=== PATIENT | female | born 1990 | race Caucasian/White ===

== ENCOUNTER 2021-07-01 10:17 | Outpatient (CLI) | payer OTHER, SELFPAY ==
--- NOTE | ~2021-07-01 | US_ITS ---
EXAMINATION: US right upper quadrant EXAM DATE: 07/01/2021 10:55 INDICATION: , biliary colic. Postprandial right upper quadrant pain. Some vomiting. 23 weeks . Symptoms one week. TECHNIQUE: Multiple grayscale and Doppler images of the abdomen right upper quadrant were obtained (b y a technologist who performed the scan) and subsequently reviewed. There is no prior study for chelsie dill. FINDINGS: The pancreatic head and body are normal in appearance. The pancreatic tail is not visualized. The l iver has normal echogenicity and contour. There are no focal liver lesions identified. There is no evidence of intrahepatic biliary duct dilation. Portal venous flow was seen in the hepatopedal, nor mal direction and has normal Doppler waveform. No right-sided hydronephrosis. Common bile duct measures 2 mm, which is normal. The gallbladder wall is normal in thickness, with ex pected amount of distention. No sonographic evidence of pericholecystic fluid. There is no cholelit hiases. Technologist performing exam reports patient did not demonstrate sonographic Hood's sign. Please note that this sign is less reliable in patients who have received pain medication. IMPRESSION: 1. Unremarkable abdominal ultrasound exam. Reviewed, dictated and finalized at location B.
== END 2021-07-01 10:18 | disposition home or self-care (01) ==
LOC: ANHIMG 10:21
PROVIDERS: Visit Provider Student in an Organized Health Care Education/Training Program
DX: K80.50 Calculus of bile duct without cholangitis or cholecystitis without obstruction (principal)
CPT/HCPCS: 76705

== ENCOUNTER 2021-10-27 20:01 | Inpatient (IN) | payer OTHER, SELFPAY ==
[2021-10-27] VITALS (10 sets, daily range): BP systolic 96–133; BP diastolic 55–80; PULSE 68–102; RESP 14–16; TEMP 36.6–36.8; O2SAT 97; BMI 37.0
[2021-10-27 20:46] LABS: Basophils Percent Auto 0.2 % (0.2-1.2); Eosinophils Percent Auto 0.4 % (0-4.4); Hematocrit 36.6 % (37.0-47.0); Hemoglobin 12.3 g/dL (12.0-15.0); Immature Granulocyte Absolute 0.03 K/mm3 (0.00-0.031); Immature Granulocyte Percent A 0.4 % (0-0.5); Lymphocytes Absolute Auto 1.42 K/mm3 (0.9-3.2); Lymphocytes Percent Auto 17.1 % (18.3-44.2); Mean Corpuscular HGB Conc 33.6 g/dl (32-36); Mean Corpuscular Hemoglobin 30.6 pg (26-34); Mean Platelet Volume 10.7 fl (7.4-10.4); Monocytes Absolute Auto 0.6 K/mm3 (0.1-0.6); Neutrophils Absolute Auto 6.2 K/mm3 (1.3-6.7); Neutrophils Percent Auto 74.9 % (45.5-73.1); Platelet Count Result 192 k/mm3 (150-375); Red Blood Count 4.02 M/mm3 (4.2-5.4); Red Cell Distribution Width 13.1 % (11.5-14.5); White Blood Count 8.3 K/mm3 (4.5-10.0)
--- NOTE | 2021-10-27 20:57 | LDADM ---
This patient, Mamie Bond, was admitted to Labor/Delivery/Recovery 107 on 10/27/21 at 20:01. Plans for labor, pain management and were discussed with patient. Patient/family oriented to hospital policies and general routines including ID bracelet, bed and alarms, visiting hours, pain management, procedures, bathroom and other care routines, personal items, smoking policy, room service/diet and guest tray routines, security routines, and visiting hours. Patient/Family are encouraged to report perceived risks to care and to ask questions if they do not understand what they are told or what they should do. See OBIX for further documentation.
[2021-10-27] MEDS: miSOPROStol 25 MCG TABLET VAGINAL (21:05)
[2021-10-28] VITALS (246 sets, daily range): BP systolic 84–132; BP diastolic 38–88; PULSE 53–121; RESP 16–18; TEMP 36.5–37.2; O2SAT 83–100
[2021-10-28] MEDS: miSOPROStol 25 MCG TABLET VAGINAL (01:28)
--- NOTE | 2021-10-28 06:37 | WPDANESEPP ---
Anes - Eval Pre Procedure Procedure: labor epidural Date/Time: 10/28/21 06:37 Surgeon: jordan Preop Diagnosis: pain during labor Pre Op Diagnosis: IOL Patient Data Age: 31 Gender: F Height: 1.68 m Weight: 104 kg Last Vital Signs Temp 36.9 C 10/28/21 05:40 Pulse 61 10/28/21 03:01 Resp 18 10/28/21 05:40 BP 85/38 L 10/28/21 03:01 Pulse Ox 97 10/27/21 20:43 Allergies Allergy/AdvReac Type Severity Reaction Status Date / Time cephalexin [From Keflex] Allergy Nausea and Verified 10/01/21 13:38 Vomiting coconut Allergy Hives Verified 10/01/21 13:38 Home Medications Medication Instructions Recorded Confirmed Type cetirizine [Zyrtec] 10 mg PO DAILY 10/01/21 10/01/21 History magnesium 500 mg PO 10/01/21 History omeprazole [Prilosec] 40 mg PO DAILY 10/01/21 10/01/21 History prenat.vits,юлия,axs-xcef-czvcn 1 tablet PO DAILY 10/01/21 10/01/21 History [ #2] ovgnkkopcm-sdrutfotzxtxv-mlrb tablet 10/27/21 History Laboratory Tests 10/27/21 10/27/21 10/27/21 20:37 20:37 20:37 WBC 8.3 K/mm3 K/mm3 (4.5-10.0) RBC 4.02 M/mm3 L M/mm3 (4.2-5.4) Hgb 12.3 g/dL g/dL (12.0-15.0) Hct 36.6 % L % (37.0-47.0) MCV 91.0 fl fl (80-100) MCH 30.6 pg pg (26-34) MCHC 33.6 g/dl g/dl (32-36) RDW 13.1 % % (11.5-14.5) Plt Count 192 k/mm3 k/mm3 (150-375) MPV 10.7 fl H fl (7.4-10.4) Immature Gran % (Auto) 0.4 % % (0-0.5) Neut % (Auto) 74.9 % H % (45.5-73.1) Lymph % (Auto) 17.1 % L % (18.3-44.2) [place] % (Auto) 7.0 % % (2.6-8.5) Eos % (Auto) 0.4 % % (0-4.4) Baso % (Auto) 0.2 % % (0.2-1.2) Lymph # (Auto) 1.42 K/mm3 K/mm3 (0.9-3.2) [place] # (Auto) 0.6 K/mm3 K/mm3 (0.1-0.6) Eos # (Auto) 0.0 K/mm3 K/mm3 (0-0.3) Baso # (Auto) 0.0 K/mm3 K/mm3 (0.0-0.1) Abs Immat Gran (auto) 0.03 K/mm3 K/mm3 (0.00-0.031) Absolute Neuts (auto) 6.2 K/mm3 K/mm3 (1.3-6.7) Absolute Nucleated RBC 0.0 K/mm3 K/mm3 (0.0-0.012) Nucleated RBC % 0.0 % % (0.0-0.2) RPR Pending Blood Type AB Positive Antibody Screen Negative Patient hx anesthesia problems: none Family hx anesthesia problems: none Results Review: All pre-operative results and documents have been reviewed as part of the pre-operative evaluation. [facility] Past Medical History Medical History (Updated 10/28/21 @ 06:38 by Rola Adair CRNA) GERD (gastroesophageal reflux disease) Intrauterine Obesity (BMI 30-39.9) Family History Family History (Updated 10/01/21 @ 14:00 by Moses Zhou RN) Sibling Angela's disease Mother Sleep apnea Hypothyroid Hypertension Heart disease Father High cholesterol Social History Social History Smoking status: Never smoker Second hand tobacco smoke exposure: No Other substance usage details: UDS +OPIATES Spiritual care concerns: No Exam Day of Procedure 10/28/21 06:37
[2021-10-28] MEDS: LACTATED RINGERS 1,000 ML 125 ML IV CONT ×3 (06:51→20:58)
[2021-10-28] MEDS: OXYTOCIN 30 UNITS/NS 500 ML 30 UNITS/500 ML BAG IV CONT (06:51)
--- NOTE | 2021-10-28 08:04 | PM.IMHP ---
H&P: HPI History of Present Illness Date/Time: 10/28/21 08:04 Chief Complaint: Intrauterine at term Narrative: 31 yo at 40w4d who presents for elective IOL. This is an IVF with transfer date of 02/05/21. has been uncomplicated thus far. She endorses good movement. She denies any vaginal bleeding, LOF, or regular contractions. Review of Systems Cardiovascular: Cardiovascular: Denies chest pain, Denies leg edema, Denies palpitations, Denies dyspnea and Denies dyspnea on exertion Respiratory: Respiratory: Denies cough, Denies dyspnea and Denies dyspnea on exertion Gastrointestinal: Gastrointestinal: Denies abdominal pain, Denies constipation, Denies diarrhea, Denies nausea and Denies vomiting Genitourinary: Genitourinary: Denies hematuria, Denies urinary frequency, Denies dysuria, Denies pelvic pain, Denies urinary incontinence and Denies vaginal discharge Neurologic: Reports system reviewed and no additional complaints, except as documented Psychiatric: Psychiatric: Reports no additional psychiatric complaints Endocrine: Endocrine: Denies palpitations PMFSH Past Medical History Medical History (Updated 10/28/21 @ 08:09 by Tej Trujillo MD) GERD (gastroesophageal reflux disease) Intrauterine Obesity (BMI 30-39.9) Family History Family History (Updated 10/01/21 @ 14:00 by Moses Zhou RN) Sibling Angela's disease Mother Sleep apnea Hypothyroid Hypertension Heart disease Father High cholesterol Social History Social History Smoking status: Never smoker Second hand tobacco smoke exposure: No Other substance usage details: UDS +OPIATES Spiritual care concerns: No Meds Home Medications and Allergies Home Medications Medication Instructions Recorded Confirmed Type cetirizine [Zyrtec] 10 mg PO DAILY 10/01/21 10/01/21 History magnesium 500 mg PO 10/01/21 History omeprazole [Prilosec] 40 mg PO DAILY 10/01/21 10/01/21 History prenat.vits,юлия,upr-gorp-icxhd 1 tablet PO DAILY 10/01/21 10/01/21 History [ #2] ghjmltnxdx-psdgqrqynikwd-lfmj tablet 10/27/21 History Allergies Allergy/AdvReac Type Severity Reaction Status Date / Time cephalexin [From Keflex] Allergy Nausea and Verified 10/01/21 13:38 Vomiting coconut Allergy Hives Verified 10/01/21 13:38 Vital Signs Vital Signs - 24 hr 10/27/21 20:01 10/27/21 20:43 10/27/21 20:46 Temperature 36.8 C 36.8 C Pulse Rate 94 94 Respiratory Rate 14 16 Blood Pressure 123/61 124/80 Pulse Oximetry 97 10/27/21 21:07 10/27/21 22:40 10/27/21 22:46 Temperature 36.6 C 36.7 C Pulse Rate 69 74 Respiratory Rate Blood Pressure 124/68 132/58 L Pulse Oximetry 10/27/21 23:01 10/27/21 23:16 10/27/21 23:31 Temperature Pulse Rate 69 68 71 Respiratory Rate Blood Pressure 132/70 133/65 96/60 L Pulse Oximetry 10/27/21 23:46 10/28/21 00:01 10/28/21 01:30 Temperature 36.6 C Pulse Rate 69 61 Respiratory Rate 18 Blood Pressure 105/55 L 84/46 L Pulse Oximetry 10/28/21 01:32 10/28/21 01:46 10/28/21 02:01 Temperature Pulse Rate 60 63 69 Respiratory Rate Blood Pressure 94/75 L 97/50 L 97/45 L Pulse Oximetry 10/28/21 02:16 10/28/21 02:31 10/28/21 02:46 Temperature Pulse Rate 73 63 71 Respiratory Rate Blood Pressure 109/61 98/45 L 91/40 L Pulse Oximetry 10/28/21 03:01 10/28/21 05:40 10/28/21 06:53 Temperature 36.9 C Pulse Rate 61 111 H Respiratory Rate 18 Blood Pressure 85/38 L 119/86 Pulse Oximetry 10/28/21 07:01 10/28/21 07:31 10/28/21 07:49 Temperature 36.6 C Pulse Rate 85 65 Respiratory Rate Blood Pressure 127/84 102/66 Pulse Oximetry 10/28/21 08:01 Temperature Pulse Rate 58 L Respiratory Rate Blood Pressure 123/74 Pulse Oximetry Exam Const: General: no acute distress Eyes: EOM: EOMs intact bilaterally Neck: Neck: supple Thyroid: thyroid no
[2021-10-28] MEDS: ONDANSETRON INJ 4 MG/2 ML VIAL IV PUSH ×2 (09:16→18:20)
[2021-10-28 14:38] LABS: Rapid Plasma Reagin Non-Reactive (NonReactive)
[2021-10-29] VITALS (30 sets, daily range): BP systolic 99–162; BP diastolic 39–118; PULSE 76–114; RESP 14–18; TEMP 36.4–37.4; O2SAT 99–100
[2021-10-29 01:54] LABS: Basophils Percent Auto 0.2 % (0.2-1.2); Hematocrit 34.7 % (37.0-47.0); Hemoglobin 11.6 g/dL (12.0-15.0); Immature Granulocyte Absolute 0.04 K/mm3 (0.00-0.031); Immature Granulocyte Percent A 0.3 % (0-0.5); Lymphocytes Absolute Auto 1.08 K/mm3 (0.9-3.2); Lymphocytes Percent Auto 7.8 % (18.3-44.2); Mean Corpuscular HGB Conc 33.4 g/dl (32-36); Mean Corpuscular Hemoglobin 30.8 pg (26-34); Mean Platelet Volume 10.6 fl (7.4-10.4); Monocytes Absolute Auto 0.6 K/mm3 (0.1-0.6); Monocytes Percent Auto 4.2 % (2.6-8.5); Neutrophils Absolute Auto 12.2 K/mm3 (1.3-6.7); Neutrophils Percent Auto 87.5 % (45.5-73.1); Platelet Count Result 179 k/mm3 (150-375); Red Blood Count 3.77 M/mm3 (4.2-5.4); White Blood Count 13.9 K/mm3 (4.5-10.0)
[2021-10-29] MEDS: miSOPROStol 200 MCG TABLET 1000 MCG RECTAL (02:00)
--- NOTE | 2021-10-29 02:01 | PM.OBPRVD ---
OB - Delivery Note Procedure Procedure: Patient pushed for a spontaneous vaginal delivery. The fetus was delivered atraumatically and placed on the maternal abdomen. The cord was clamped and cut after 1 minute of life. The cord was double clamped and cut and a segment of cord was collected for cord gases. Cord blood was collected for blood type and Coomb's testing. The placenta was difficult to deliver. Fundal massage and gentle traction was applied to the placenta. The placenta was mostly delivered but had a small section that would not separate. The placenta was then manually extracted. After removal of the placenta, there was a large mass palpated in the vagina. Immediately, bedside US was obtained. There was a moderate amount of vaginal bleeding noted. Bedside US confirmed suspicion for uterine inversion. Gentle pressure was applied and the fundus was the uterus was replaced. Bedside US was again performed and showed the fundus was replaced and a good endometrial stripe was noted. The patient was receiving IV pitocin bolus. 1000 mcg of cytotec was placed TN. 1000 mg of tranexamic acid was ordered as prophylaxis for hemorrhage. The patient also received 2g of Ancef once. The perineum was inspected and there was a 2nd degree perineal laceration. The laceration was repaired with 3-0 vicryl in the usual fashion. The uterus was firm and good hemostasis was noted. Bedside US was repeated after perineal repair and again showed a thin endometrial stripe. CBC was ordered to evaluate extent of blood loss. The patient and fetus were stable in the delivery room. events: Labor Induction and Meconium Stained Fluid Intrapartal events: Other (Uterine inversion) Induction method: per misoprostol protocol Delivery augmentation: rupture of membranes and pitocin Delivery monitor: external FHT Route of delivery: Episiotomy description: None Laceration Description: Perineal - 2nd Degree Delivery repair: vicryl Specimen: No Quantitative Blood Loss (ml): 700 Anesthesia type: Epidural Disposition: floor () Complications: uterine inversion Baby Date of : 10/29/[birth year] Time of : 01:19 Weeks of gestation at delivery: 40 Infant gender: Female Weight (pounds): 7 Weight (ounces): 7 presentation: vertex position: Right Occiput Anterior Placenta delivery description: Spontaneous cord vessel description: 3 Vessels and Delayed Cord Clamping score one minute: 8 score five minutes: 9
[2021-10-29] MEDS: ONDANSETRON INJ 4 MG/2 ML VIAL IV PUSH (02:09)
[2021-10-29] MEDS: OXYTOCIN 30 UNITS/NS 500 ML 30 UNITS/500 ML BAG 125 UNITS IV CONT (02:21)
[2021-10-29] MEDS: ceFAZolin 2 GM/D5W 50 ML 2 GM/50 ML BAG IVPB (02:21)
[2021-10-29] MEDS: TRANEXAMIC ACID 1,000 MG in SODIUM CHLORIDE 0.9% IV 50 ML 360 MG IVPB (02:40)
[2021-10-29] MEDS: IBUPROFEN 600 MG TABLET PO ×3 (05:40→18:38)
--- NOTE | 2021-10-29 08:15 | PC.NURSE ---
Mother called out for assist with feeding, reporting this is the first time is at breast. Mother pumped the last few weeks of and had colostrum available for the first few feedings. . is able to freely thrust tongue past gum ridge and flange both lips. Skin is intact on both nipples, no redness and bruising noted. Reviewed infant feeding cues, frequencies, duration of feedings, feeding elimination flow sheet, and signs of adequate intake. Demonstrated stimulation techniques to wake for feeding. Assisted with infant to breast. Reviewed positioning/alignment in cross cradle, holding breast in ?U? hold and guided asymmetrical latch on. Reviewed rational for each. able to latch correctly within a few attempts. nursed eagerly with steady draws and occasional swallowing noted, some pausing noted. Reviewed signs of a correct latch, effective nursing and suck swallow ratio. Suggested mother stimulate while feeding to increase stimulation for milk supply, for increased intake and to assist with maintaining deep latch. Infant was able to maintain latch without discomfort to mother. Demonstrated how to adjust latch more deeply while feeding as needed. Nipple care reviewed of lanolin after feedings, warm compresses as needed. Instructed mother to call out for RN assistance if she is unable to latch for feeding or she has discomfort with nursing. Instructed feeding should be initiated three hours from start of last feeding or if feeding cues are noted before. Mother voiced understanding of information shared.
--- NOTE | 2021-10-29 08:45 | PC.NURSE ---
Mother called out to switch to right breast. Assisted with to breast. Reviewed positioning/alignment in cross cradle, holding breast in ?U? hold and guided asymmetrical latch on. Reviewed rational for each. able to latch correctly within a few attempts. Infant nursed eagerly with steady draws and occasional swallowing noted, some pausing noted. Reviewed signs of a correct latch, effective nursing and suck swallow ratio. Suggested mother stimulate while feeding to increase stimulation for milk supply, for increased intake and to assist with maintaining deep latch. Infant would slip to shallow latch causing tenderness. Instructed mother to call out for RN assistance if she is unable to latch for feeding or she has discomfort with nursing. Instructed feeding should be initiated three hours from start of last feeding or if feeding cues are noted before. Mother voiced understanding of information shared.
[2021-10-29] MEDS: POLYSACCHARIDE IRON COMPLEX 150 MG CAPSULE PO ×2 (09:27→18:38)
[2021-10-29] MEDS: MULTIVIT/MIN/PREN/FOL AC/IRON TABLET 1 TAB PO (09:27)
[2021-10-29] MEDS: HYDROcodone/acetaminophen (*CRX) 5-325 MG TABLET 1 TAB PO (09:28)
[2021-10-29] MEDS: DOCUSATE SODIUM 100 MG CAPSULE PO (09:28)
[2021-10-29 12:38] LABS: Hematocrit 27.2 % (37.0-47.0); Hemoglobin 9.2 g/dL (12.0-15.0)
[2021-10-30] VITALS (11 sets, daily range): BP systolic 105–122; BP diastolic 66–83; PULSE 74–96; RESP 16–18; TEMP 35.9–37.1; O2SAT 100
[2021-10-30] MEDS: IBUPROFEN 600 MG TABLET PO ×2 (04:12→09:17)
[2021-10-30 04:56] LABS: Hematocrit 21.4 % (37.0-47.0); Hemoglobin 7.2 g/dL (12.0-15.0)
--- NOTE | 2021-10-30 07:18 | P.PNOB_ITS ---
OB - PN: Subj Subjective Date/time seen: 10/30/21 07:18 Patient comments: no complaints, pain well controlled and tolerating diet [place] feeding status: exclusively breast feeding Narrative: Patient is overall doing well. She still reports some weakness and dizziness when ambulating. She states her bleeding is mild. She reports rectal pressure from her repair. She denies any abdominal pain. She is tolerating PO. She denies any fevers, chills. OB - PN: Obj Data Labs CBC & Chem 7: 10/30/21 04:05 Labs: Laboratory Results - last 24 hr 10/29/21 10/30/21 09:52 04:05 Hgb 9.2 L 7.2 L Hct 27.2 L 21.4 L OB - PN A/P Plan day: 1 Plan: routine care Comments: patient doing well H/H dropped from 9.2 to 7.2, pt is symptomatic when ambulating plan for pRBC transfusion of 2 units due to symptomatic anemia. risks, benefits, alternatives to transfusion discussed. continue routine care possible d/c home this evening if symptoms improve. Time Spent With Patient Time: Total time spent is greater than 50% in coordination of care (as documented) at patient's floor/unit and/or counseling patient: Time with patient: less than 15 minutes Review of Systems Review of Systems: All systems reviewed & are unremarkable except as noted in HPI and below Exam Const: General: comfortable and no acute distress Resp: Effort & Inspection: normal respiratory effort Cardio: Rate: regular rate GI: GI Palp: Yes Soft to palpation and No Tenderness to palpation present (GI) Auscultation: normal bowel sounds Other: fundus firm and below umbilicus. Psych: Affect: normal affect
[2021-10-30] MEDS: DOCUSATE SODIUM 100 MG CAPSULE PO (09:17)
[2021-10-30] MEDS: MULTIVIT/MIN/PREN/FOL AC/IRON TABLET 1 TAB PO (09:18)
[2021-10-30] MEDS: diphenhydrAMINE HCl CAP 25 MG CAPSULE PO (09:18)
[2021-10-30] MEDS: POLYSACCHARIDE IRON COMPLEX 150 MG CAPSULE PO (09:18)
[2021-10-30] MEDS: LANOLIN (LANSINOH) 7.5 GM CREAM 1 APPLIC TOPICAL (09:19)
--- NOTE | 2021-10-30 11:30 | PC.NURSE ---
Consult with pt., mother is able to independently latch without assist. is eagerly feeding with and not satisfied after long periods of nursing. Mother has initiated supplementation after breastfeedings and will pump for 10 minutes. Reviewed mother may have a delay in milk supply due to increased blood loss after delivery. Discussed limiting pumping if is nursing every three hours for 15-20 minutes.
--- NOTE | 2021-10-30 15:31 | PM.OBDSVD ---
DS: Admitting Diagnosis Discharge Date 10/30/21 Admitting Diagnosis intrauterine at term OB - DS: Summary OB Procedures : None OB Procedures Intrapartum: Spontaneous Vag Delivery OB Procedures: : None Peripartum Data Laceration Description: Perineal - 2nd Degree complications: transfusion and other (Uterine inversion ) Status at Discharge Functional status at discharge: independent ambulation Overall status at discharge: patient is progressing back to baseline Time Spent with Patient Time attestation: Total time spent providing and/or coordinating discharge services: Time spent: Less than 30 minutes Exam Const: General: comfortable and no acute distress Resp: Effort & Inspection: normal respiratory effort Auscultation: clear to auscultation bilaterally Cardio: Rate: regular rate GI: GI Palp: Yes Soft to palpation Auscultation: normal bowel sounds Other: Fundus firm below umbilicus Psych: Appearance: grossly normal Mental Status: mental status grossly normal Affect: normal affect DS: Data Data Completed and Pending Pending studies at discharge: Pending at discharge 10/29/21 01:30 Surgical [PTH] Routine Labs on day of discharge: Labs from last 24 hours 10/30/21 10/27/21 04:05 20:37 Hgb 7.2 L Hct 21.4 L Blood Type AB Positive Antibody Screen Negative Crossmatch See Detail Discharge Plan Discharge Discharging Clinician: Tej Trujillo Anticipated Discharge Date/Time: 10/30/21 15:33 Patient Disposition: Home, Self-Care Activity: as tolerated and pelvic rest Diet: regular Patient Instructions: Antibiotic Form, Vaginal Delivery (DC) Stand Alone Forms: General Discharge Information Follow-up/Referrals: Tej Trujillo MD [Physician] - 4 Weeks Discharge Medications: New acetaminophen [Mapap (acetaminophen)] 325 mg Tablet 650 mg PO Q6H PRN (Reason: Mild Pain (1-3) Or Headache) Qty: 30 RF: 0 ibuprofen 600 mg Tablet 600 mg PO Q6H PRN (Reason: Cramping) Qty: 30 RF: 0 polysaccharide iron complex 150 mg iron Capsule 150 mg PO BIDWM Qty: 60 RF: 0 Continued magnesium 500 mg Tablet 500 mg PO RF: 0 cetirizine [Zyrtec] 10 mg Tablet 10 mg PO DAILY RF: 0 omeprazole [Prilosec] 40 mg Capsule,Delayed Release(Dr/Ec) 40 mg PO DAILY RF: 0 #2 Tablet 1 tablet PO DAILY RF: 0 rgzltmvkyn-hjfrkroibbehr-liru 50-325-40 mg tablet RF: 0 Date of admission: 10/27/21 20:01 Primary Care Provider: PHYSICIAN,EXTRUDER OPERATOR VERTICAL Admitting Provider: Tej Trujillo Attending physician on admission: Tej Trujillo Condition: Stable
--- NOTE | 2021-10-30 15:32 | PC.NURSE ---
Dr. Trujillo notified that patient is doing well since blood transfusion, orders received that pt can be discharged to home, he will put the discharge order in.
[2021-10-31 10:39] VITALS: BP 129/79; PULSE 68; RESP 20; TEMP 36.8; O2SAT 100
== END 2021-10-30 18:48 | disposition home or self-care (01) | DRG 806 ==
LOC: ANHLDR 20:07 → ANHOB2 10-29 05:23
PROVIDERS: Admitting Provider Student in an Organized Health Care Education/Training Program; Visit Provider Student in an Organized Health Care Education/Training Program
DX: O77.0 Labor and delivery complicated by meconium in amniotic fluid (principal); O71.2 Postpartum inversion of uterus; Z37.0 Single live birth; Z3A.40 40 weeks gestation of pregnancy; O36.8330 Maternal care for abnormalities of the fetal heart rate or rhythm, third trimester, not applicable or unspecified; O70.1 Second degree perineal laceration during delivery; O99.62 Diseases of the digestive system complicating childbirth; K21.9 Gastro-esophageal reflux disease without esophagitis; O90.81 Anemia of the puerperium; D64.9 Anemia, unspecified
CPT/HCPCS: 36415; 36430; 85014; 85018; 85025; 86592; 86850; 86900; 86901; 86920; 88307; A9270; J0690; J2405; J2590; J2795; J7030; J7120; P9016

== ENCOUNTER 2021-12-11 11:07 | Outpatient (RCR) | payer OTHER, SELFPAY ==
--- NOTE | 2021-12-12 08:01 | PC.NURSE ---
IN 1107 OUT 1214 Consult with for decreased milk production History: Patient states she delivered at [place] at 40 5/7 and there were complications. She hemorrhaged after her uterus inverted. Her milk did not come fully in until 2 weeks . The infant is now 42 days old and appears to be well cared for. Mother has taken her daughter to the director sales training at least twice and the [facility] once. Infant determined to have reflux or a happy spitter Mother reports: has 10-11 wets and 1 stool about every 3rd day, then it is a blowout . Mother states she is working with the director sales training ([facility] care provider) to assist with ease of stooling and digestion. Baby is gassy as well. Formula was changed to Nutramigen earlier in the month. is fussy on/off at the breast, then after feeding sleeps. Mother adds she doesn't feel like her breast are emptying and is concerned about her pumping breast shield sizes. Mother is supplementing with formula and has since discharged from the hospital related to her milk not coming in. weight : 7lbs 7 oz, discharge weight : 7-4, lowest weight 7-1, last weight 7-7, then 10lbs 5 oz on 12/09 at the [facility] office. The routine is 6-8 times in 24 hours 3-4 of those feedings are supplementation. Mother states she feels her baby when she shows feeding signs. Mother confirms that she is pumping her breast when infant receives a bottle. She has also tried power pumping for 30 min to increase volume. She states she can pump out 4-6 oz and more out of the right than the left. She denies any alcohol or drugs. She takes vitamins, eats cookies and recently started on progesterone only BCP's. Denies recent illness and any mental health distress. She complains of a burning pain on the nipple after . Mother wishes to improve milk production and have pumping flange fit assessed. Observations: Infant tongue moves freely past the gumline and curls up with crying. Mother latches infant while crying. latches ineffectively at times as evidenced by nipple misshaped after detach. Reviewed early feeding cues, organizing with skin to skin and attempting the latch with wide open gape with tongue down. After shallow latch nipple has the appearance of vasoconstriction as evidenced by white/marley color only on the end of the middle of the nipple. does not have white patches on the tongue. Mother feels well and has no redness on breast. Nipples are everted and appearance is with slight redness but mother denies tenderness with exception to the burning pain after feeding that subsides after nipple has returned to pink in color RN educated mother on improving positioning and latching infant to increase good effective transition of milk. Breast are soft and mother latches to the breast holding her breast with the C hold and using cross cradle positioning. When is latched effectively the lip are flanged and sealed to the breast well. Encouragement given to gently hold onto the breast and discourage infant to pull back and latch shallow. Handout with visual effective latch given to mother. After session of approximately 20-30 min infant pre weight was 4687 grams and finished weight was 4737 grams. According to weight approximately 50 ml of human milk was transferred and infant is content and sleeping after burping attempt. While infant sleeps mother pumps breast to empty for pumping fit assessment. Mother has been using 21 mm flange with slight discomfort after pumping a while. RN suggest 24mm and mother was more comfortable. The right breast expressed more than the left breast at this time. There was 1 oz in her breast after her . Plan: Mother will work with infant on an optimal latch and feed infant until breast fill empty. She will take a break to eat or use the restroom, then pump her breast 10-15 to stimulate milk
== END 2022-03-11 23:59 | disposition home or self-care (01) ==
LOC: ANHOBOP 11:07
PROVIDERS: Visit Provider Pediatrics
DX: Z39.1 Encounter for care and examination of lactating mother (principal)
CPT/HCPCS: 99213; G0463